=== PATIENT | female | born 1935 | race Caucasian/White ===

== ENCOUNTER 2016-06-07 10:12 | Inpatient (IN) | payer MEDICARE, OTHER ==
[~2016-06-07] VITALS: Ht 167.6 cm; Wt 51.3 kg
[2016-06-07] MEDS ORDERED: SODIUM CHLORIDE 0.9% 500 ML IVB ONE (11:39)
[2016-06-07 12:19] LABS: Basophils # (auto) 0 uL; Basophils % (auto) 0.4 % (0.0-2.0); Eosinophils # (auto) 0.1 uL; Eosinophils % (auto) 2.2 % (0.0-7.0); Hematocrit 41.9 % (36.0-46.0); Hemoglobin 13.4 g/dL (12.2-16.2); Lymphocytes # (auto) 0.8 uL; Mean Corpuscular Hgb Conc. 31.9 g/dL (32.0-36.0); Mean Corpuscular Volume 84.6 fL (80.0-100.0); Mean Platelet Volume 8.5 fL (7.4-10.4); Monocytes # (auto) 0.5 uL; Monocytes % (auto) 12.6 % (0.0-12.0); Neutrophils # (auto) 2.4 uL; Neutrophils % (auto) 62.8 % (37.0-80.0); Platelet Count (auto) 271 10^3/uL (140-450); Red Cell Distribution Width 15.3 % (11.6-16.0); White Blood Cell 3.8 10^3/uL (4.4-10.8)
[2016-06-07 12:40] LABS: Albumin 3.2 g/dL (3.4-5.0); Calcium 8.5 mg/dL (8.5-10.1); Magnesium 2.3 mg/dL (1.6-2.6); Potassium 3.5 mmol/L (3.5-5.1)
[2016-06-07 12:43] LABS: Bilirubin, Total 0.4 mg/dL (0.2-1.0); Total Protein 6.7 g/dL (6.4-8.2)
[2016-06-07] MEDS ORDERED: LACTULOSE 20Gm/30ML SOLN PO PRN (14:00)
[2016-06-07] MEDS ORDERED: MORPHINE SULF INJ 2 MG/ML SYRINGE 1ML IV PRN ×2 (14:00)
[2016-06-07] MEDS ORDERED: LORazepam 0.5 MG TAB PO PRN (14:00)
[2016-06-07] MEDS ORDERED: HYDROcodone-ACET 5/325MG TAB PO PRN (14:00)
[2016-06-07] MEDS ORDERED: PROMETHAZINE HCL 25 MG/ML 1ML IV PRN (14:00)
[2016-06-07] MEDS ORDERED: NITROGLYCERIN 0.4 MG SL TAB SL PRN (14:00)
[2016-06-07] MEDS ORDERED: TEMAZEPAM 15 MG CAP PO PRN (14:00)
[2016-06-07] MEDS ORDERED: ACETAMINOPHEN 500 MG TAB PO PRN (14:00)
[2016-06-07] MEDS: SODIUM CHLORIDE 0.9% 1,000 ML IV SCH (14:12)
[2016-06-07] MEDS ORDERED: ASPirin 81 mg TAB PO ONE (14:15)
[2016-06-07] MEDS: ENOXAPARIN SOD 40 MG/0.4 ML SYRINGE SC SCH (14:52)
[2016-06-07 15:10] LABS: Urine Bilirubin Negative (Negative); Urine Blood Negative /uL (Negative); Urine Color Yellow (Yellow); Urine Glucose Normal (Normal); Urine Ketone Negative (Negative); Urine Mucus FEW (None Seen); Urine Nitrite Negative (Negative); Urine RBC <1 /hpf (0 - 4); Urine Squamous Epithelial Cell FEW /hpf (<5); Urine Urobilinogen Normal (Negative)
[2016-06-07 17:00] VITALS: BP 167/74
[2016-06-07 22:00] VITALS: BP 136/68
[2016-06-08] MEDS: SODIUM CHLORIDE 0.9% 1,000 ML IV SCH ×2 (02:16→14:53)
[2016-06-08 05:00] VITALS: BP 149/72
[2016-06-08 07:38] LABS: Albumin 2.9 g/dL (3.4-5.0); BUN/Creatinine Ratio 12.7; Potassium 3.8 mmol/L (3.5-5.1)
[2016-06-08 07:49] LABS: Bilirubin, Total 0.4 mg/dL (0.2-1.0); Total Protein 5.9 g/dL (6.4-8.2)
[2016-06-08 08:10] VITALS: BP 139/69
[2016-06-08] MEDS: ENOXAPARIN SOD 40 MG/0.4 ML SYRINGE SC SCH (10:46)
[2016-06-08] MEDS: ASPirin 81 mg TAB PO SCH (10:46)
[2016-06-08 14:42] VITALS: BP 142/76
[2016-06-08] MEDS: LEVODOPA W/CARB 25/100MG TABLET PO SCH ×2 (14:53→21:47)
[2016-06-08] MEDS: FREE WATER GT SCH ×2 (16:53→21:47)
[2016-06-08 17:14] VITALS: BP 144/77
[2016-06-08 22:13] VITALS: BP 142/68
[2016-06-08] MEDS ORDERED: RISP1TAB63 PO (22:38)
[2016-06-08] MEDS ORDERED: MIRT15TA63 PO (22:38)
[2016-06-08] MEDS ORDERED: CHOL100040 PO (22:38)
[2016-06-08] MEDS ORDERED: BISA10SU5 PR (22:38)
[2016-06-08] MEDS ORDERED: MEMA1CAP PO (22:38)
[2016-06-08] MEDS ORDERED: ALUMSUS OR (22:38)
[2016-06-08] MEDS ORDERED: ALPR0.254 PO (22:38)
[2016-06-08] MEDS ORDERED: ALEN70SO PO (22:38)
[2016-06-08] MEDS ORDERED: ASPI81CH4 PO (22:38)
[2016-06-08] MEDS ORDERED: CALC-242 PO (22:38)
[2016-06-08] MEDS ORDERED: ACE325T PO (22:38)
[2016-06-08] MEDS ORDERED: DONE10TA37 PO (22:38)
[2016-06-08] MEDS ORDERED: DOCU100T15 PO (22:38)
[2016-06-08] MEDS ORDERED: RASA1TAB PO (22:38)
[2016-06-08] MEDS ORDERED: MAGN400S25 PO (22:38)
[2016-06-09] MEDS: FREE WATER GT SCH ×6 (02:00→21:29)
[2016-06-09] MEDS: SODIUM CHLORIDE 0.9% 1,000 ML IV SCH ×2 (03:16→15:46)
[2016-06-09 04:36] VITALS: BP 125/69
[2016-06-09] MEDS: LEVODOPA W/CARB 25/100MG TABLET PO SCH ×3 (06:15→21:30)
[2016-06-09 08:30] VITALS: BP 127/66
[2016-06-09] MEDS: ASPirin 81 mg TAB PO SCH (09:39)
[2016-06-09] MEDS: ENOXAPARIN SOD 40 MG/0.4 ML SYRINGE SC SCH (09:39)
[2016-06-09 12:30] VITALS: BP 125/59
[2016-06-09 16:30] VITALS: BP 123/84
[2016-06-09 21:11] VITALS: BP 146/68
[2016-06-10] MEDS: FREE WATER GT SCH ×6 (02:00→23:02)
[2016-06-10] MEDS: SODIUM CHLORIDE 0.9% 1,000 ML IV SCH ×2 (05:23→16:46)
[2016-06-10] MEDS: LEVODOPA W/CARB 25/100MG TABLET PO SCH ×4 (05:29→23:02)
[2016-06-10 05:35] VITALS: BP 135/74
[2016-06-10 06:20] VITALS: BP 146/68
[2016-06-10 09:00] VITALS: BP 150/73
[2016-06-10] MEDS: ENOXAPARIN SOD 40 MG/0.4 ML SYRINGE SC SCH (09:39)
[2016-06-10] MEDS: ASPirin 81 mg TAB PO SCH (09:40)
[2016-06-10 13:00] VITALS: BP 145/83
[2016-06-10 17:00] VITALS: BP 149/84
[2016-06-10 21:39] VITALS: BP 141/78
[2016-06-11] MEDS: FREE WATER GT SCH ×4 (02:00→14:00)
[2016-06-11 04:47] VITALS: BP 135/78
[2016-06-11] MEDS: SODIUM CHLORIDE 0.9% 1,000 ML IV SCH (05:16)
[2016-06-11] MEDS: LEVODOPA W/CARB 25/100MG TABLET PO SCH ×2 (06:11→12:12)
[2016-06-11 08:30] VITALS: BP 185/109
[2016-06-11 08:50] VITALS: BP 172/80
[2016-06-11] MEDS: ASPirin 81 mg TAB PO SCH (09:54)
[2016-06-11] MEDS: ENOXAPARIN SOD 40 MG/0.4 ML SYRINGE SC SCH (09:54)
[2016-06-11 12:30] VITALS: BP 156/79
== END 2016-06-11 15:30 | DRG 56 ==
LOC: ER 10:13 → TELE 10:14 → TELE-WESTW 16:18
PROVIDERS: ADMIT Internal Medicine; ATTEND Internal Medicine Pulmonary Disease
DX: G20 Parkinson's disease (principal); G93.41 Metabolic encephalopathy; E87.0 Hyperosmolality and hypernatremia; N39.0 Urinary tract infection, site not specified; E44.1 Mild protein-calorie malnutrition; Z68.1 Body mass index [BMI] 19.9 or less, adult; G30.9 Alzheimer's disease, unspecified; F02.80 Dementia in other diseases classified elsewhere, unspecified severity, without behavioral disturbance, psychotic disturbance, mood disturbance, and anxiety; W19.XXXA Unspecified fall, initial encounter; Z82.49 Family history of ischemic heart disease and other diseases of the circulatory system; Z87.440 Personal history of urinary (tract) infections; Z86.73 Personal history of transient ischemic attack (TIA), and cerebral infarction without residual deficits; Z98.890 Other specified postprocedural states; E86.0 Dehydration
CPT/HCPCS: 36415; 51702; 70450; 71010; 80053; 81001; 82550; 82607; 82962; 83605; 83735; 84443; 84484; 85025; 85652; 87086; 93005; 95819; 96360; 96361; 97001